=== PATIENT | female | born 1990 | race Caucasian/White ===

== ENCOUNTER 2023-05-18 22:00 | Emergency (ER) | payer MEDICAID ==
[~2023-05-18] VITALS: Ht 154.9 cm; Wt 104.5 kg
[~2023-05-18 22:00] MED LIST: PREN1TAB52 PO
[2023-05-18 23:16] VITALS: TEMP 98.8
[2023-05-19] MEDS ORDERED: METHOCARBAMOL 500 MG TABLET PO ONE (01:45)
[2023-05-19] MEDS ORDERED: KETOROLAC TROMETHAMINE 60 MG/2 ML VIAL IM ONE (01:45)
[2023-05-19] MEDS ORDERED: IBUP-1492 PO (02:20)
[2023-05-19] MEDS ORDERED: LIDO700A15 TP (02:23)
[2023-05-19] MEDS ORDERED: METH-659 PO (02:23)
[2023-05-19 02:31] VITALS: BP 121/67; PULSE 70; RESP 16
== END 2023-05-19 02:35 | disposition home or self-care (01) ==
LOC: EMS 22:05
DX: S39.012A Strain of muscle, fascia and tendon of lower back, initial encounter (principal); J45.909 Unspecified asthma, uncomplicated; F12.90 Cannabis use, unspecified, uncomplicated; Z90.89 Acquired absence of other organs; Z96.659 Presence of unspecified artificial knee joint; H91.3 Deaf nonspeaking, not elsewhere classified; X50.0XXA Overexertion from strenuous movement or load, initial encounter; Y93.89 Activity, other specified; Y92.89 Other specified places as the place of occurrence of the external cause; Y99.8 Other external cause status
CPT/HCPCS: 99283; 96372; J1885

== ENCOUNTER 2024-11-26 15:45 | Emergency (ER) | payer MEDICAID ==
[~2024-11-26] VITALS: Ht 170.2 cm; Wt 81.8 kg
[~2024-11-26 15:45] MED LIST changes: +IBUP-1492 PO; +LIDO-57 TP; +METH-659 PO
[2024-11-26] MEDS: ACETAMINOPHEN 500 MG TABLET PO ONE (18:18)
[2024-11-26] MEDS: KETOROLAC TROMETHAMINE 30 MG/ML VIAL IVP ONE (18:19)
[2024-11-26] MEDS: SODIUM CHLORIDE 0.9% 1,000 ML IV ONE (18:19)
[2024-11-26] MEDS: ONDANSETRON HCL 4 MG/2 ML VIAL IVP ONE (18:19)
[2024-11-26] MEDS: MECLIZINE HCL 25 MG TABLET PO ONE (18:19)
[2024-11-26 18:35] LABS: BASOPHILS % (AUTO) 0.6 % (0.0-2.0); EOSINOPHILS % (AUTO) 1.1 % (1.0-6.0); HEMATOCRIT 34.4 % (36-46); HEMOGLOBIN 11.2 g/dL (12.0-16.0); LYMPHOCYTES # (AUTO) 4.3 K/uL (1.0-4.8); LYMPHOCYTES % (AUTO) 39.8 % (22.0-44.0); MEAN CORPUSCULAR HEMOGLOBIN 28.5 pg (26.0-34.0); MEAN CORPUSCULAR HGB CONC 32.6 G/dL (31.0-37.0); MEAN CORPUSCULAR VOLUME 87 fL (80-100); MONOCYTES # (AUTO) 0.5 K/uL (0.1-1.0); MONOCYTES % (AUTO) 4.3 % (2.0-9.0); NEUTROPHILS # (AUTO) 5.9 K/uL (1.8-7.7); NEUTROPHILS % (AUTO) 54.2 % (40.0-70.0); PLATELET COUNT (AUTO) 284 K/uL (150-450); RED BLOOD CELL COUNT(AUTO) 3.93 MIL/uL (4.00-5.20); RED CELL DISTRIBUTION WIDTH 21.9 % (11.5-14.5); WHITE BLOOD COUNT (AUTO) 10.9 K/uL (4.5-11.0)
[2024-11-26 18:39] LABS: ANION GAP 10 mmol/L (8-16); CALCIUM, TOTAL 8.6 mg/dL (8.8-10.5); CARBON DIOXIDE 29 mmol/L (22-29); CHLORIDE 99 mmol/L (98-107); GLOMERULAR FILTR. RATE CALC > 60 mL/min (>60); GLUCOSE,RANDOM 97 mg/dL (70-110); POTASSIUM 3.3 mmol/L (3.5-5.1); SODIUM SERUM 138 mmol/L (136-145); UREA NITROGEN, BLOOD 16 mg/dL (7-18)
[2024-11-26] MEDS: MORPHINE SULFATE 4 MG/ML SYRINGE IVP ONE (20:21)
[2024-11-26 20:28] LABS: FREE T4 (FREE THYROXINE) 1.39 ng/dL (0.76-1.46); THYROID STIMULATING HORMONE 0.01 uIU/mL (0.36-3.74)
[2024-11-26 23:09] VITALS: BP 116/77; PULSE 54; RESP 16; TEMP 97.8; O2SAT 96
== END 2024-11-27 00:45 | disposition short-term general hospital (02) ==
LOC: EMS 15:47
DX: I45.5 Other specified heart block (principal); R00.1 Bradycardia, unspecified; H91.3 Deaf nonspeaking, not elsewhere classified; R42 Dizziness and giddiness; J45.909 Unspecified asthma, uncomplicated; E03.9 Hypothyroidism, unspecified; D89.84 IgG4-related disease; G43.909 Migraine, unspecified, not intractable, without status migrainosus; F12.90 Cannabis use, unspecified, uncomplicated; Z90.89 Acquired absence of other organs; Z96.659 Presence of unspecified artificial knee joint; Z79.899 Other long term (current) drug therapy
CPT/HCPCS: 99291; 96374; 96375; 96361; 80048; 84439; 84443; 84703; 85025; 36415; 93005; J1885; G0480; J2270; J2405; J7030